=== PATIENT | female | born 1960 | race Caucasian/White ===

== ENCOUNTER 2018-12-27 10:41 | Day surgery (SDC) | payer OTHER ==
--- NOTE | 2018-12-26 09:06 | HP ---
DATE: 12/27/18 ANTICIPATED PROCEDURE: Port removal and colonoscopy. HISTORY OF PRESENT ILLNESS: The patient has history of anal cancer treated at [facility] with radiation and chemotherapy. She requires follow-up. She is also requiring port removal. PAST MEDICAL HISTORY: ALLERGIES: NONE. CURRENT MEDICATIONS: See list. SURGERIES: Port in April. SOCIAL HISTORY: Negative. FAMILY HISTORY: Negative. REVIEW OF SYSTEMS: Heart attack in 2008. PHYSICAL EXAMINATION: Vital signs normal. CHEST: Clear. COR: Regular. IMPRESSION: 1. PATIENT COMPLETED THERAPY AND PRESENTS FOR PORT REMOVAL.
[~2018-12-27 10:41] MED LIST: Lactated Ringers 1,000 ML IV ONE; XYLOCAINE 1% HCL 20 ML MDV ONE
[2018-12-27] MEDS ORDERED: Lactated Ringers 1,000 ML IV SCH (11:00)
[2018-12-27] MEDS ORDERED: Versed 2 MG/2 ML Injection ONE (12:47)
[2018-12-27] MEDS ORDERED: DIPRIVAN 200 MG/20 ML IV ONE ×3 (12:47→13:18)
[2018-12-27 14:27] VITALS: BP 150/84; PULSE 68; O2SAT 96
--- NOTE | 2018-12-28 10:45 | OP ---
SURGERY DATE: 12/27/18 SURGERY TIME: 5 PREOPERATIVE DIAGNOSIS: 1. UNDESIRED PORT-A-CATH. 2. PATIENT REQUIRING COLONOSCOPY FOR FOLLOW-UP OF ANAL CANCER. POSTOPERATIVE DIAGNOSIS: 1. SUCCESSFUL PORT-A-CATH REMOVAL. 2. COLONOSCOPY COMPLETE TO CECUM WITH MINIMAL FINDINGS AND A NORMAL ANORECTAL CANAL. PROCEDURE: 1. Port removal 2. Colonoscopy. SURGEON: Noam Abarca M.D. ANESTHESIA: MAC. COMPLICATIONS: None. CONDITION: Stable. INDICATION: Patient requiring above. OPERATIVE PROCEDURE: Taken to surgery. Routine prep and drape. Catheter and port were removed in toto. Closed with 3-0 Vicryl and 4-0 Vicryl. Anal digital examination satisfactory. The anus was inspected. The rectum was inspected both externally and with the scope. It was normal. The scope was advanced up to the cecum. Base of the cecum and the ileocecal valve satisfactory. Circumferential withdrawal satisfactory. IMPRESSION: SATISFACTORY EXAM.
== END 2018-12-27 14:35 | disposition home or self-care (01) ==
LOC: SDC 10:41
PROVIDERS: ATTEND Surgery
DX: Z08 Encounter for follow-up examination after completed treatment for malignant neoplasm (principal); Z85.048 Personal history of other malignant neoplasm of rectum, rectosigmoid junction, and anus; Z45.2 Encounter for adjustment and management of vascular access device; Z79.899 Other long term (current) drug therapy
CPT/HCPCS: 88305; J2250; J2704